=== PATIENT | female | born 1995 | race African-American/Black ===

== ENCOUNTER 2019-11-23 16:05 | Emergency (ER) | payer MEDICAID ==
[2019-11-23] MEDS ORDERED: Dexamethasone 4 mg/ml Vial ONE (16:23)
--- NOTE | 2019-11-23 16:32 | RAD ---
XR Chest Pa Lat STANDARD HISTORY: Cough, asthma COMPARISON: 08/07/2014 FINDINGS: The heart size is normal. The lungs are well expanded without focal areas of consolidation, pneumothorax or pleural effusions. IMPRESSION: No radiographic evidence of acute cardiopulmonary process.
== END 2019-11-23 17:53 | disposition home or self-care (01) ==
LOC: ERS 16:05
DX: J44.1 Chronic obstructive pulmonary disease with (acute) exacerbation (principal)
CPT/HCPCS: 71046; 87804; 94640; J1100; J7620

== ENCOUNTER 2021-07-23 14:59 | Emergency (ER) | payer MEDICAID | END 2021-07-23 16:05 | disposition home or self-care (01) | LOC: ERS 14:59 | DX: S09.21XA Traumatic rupture of right ear drum, initial encounter (principal); J45.909 Unspecified asthma, uncomplicated; W22.8XXA Striking against or struck by other objects, initial encounter | CPT/HCPCS: 99282 ==

== ENCOUNTER 2021-09-15 22:07 | Emergency (ER) | payer OTHER, MEDICAID | END 2021-09-15 22:48 | disposition home or self-care (01) | LOC: ERS 22:07 | DX: J06.9 Acute upper respiratory infection, unspecified (principal); J45.909 Unspecified asthma, uncomplicated | CPT/HCPCS: 99283 ==

== ENCOUNTER 2022-06-16 02:36 | Emergency (ER) | payer OTHER ==
[2022-06-16] MEDS ORDERED: Acetaminophen 500 MG TAB ONE (06:43)
== END 2022-06-16 06:00 | disposition home or self-care (01) ==
LOC: ERS 02:36
DX: S00.11XA Contusion of right eyelid and periocular area, initial encounter (principal); W50.0XXA Accidental hit or strike by another person, initial encounter
CPT/HCPCS: 70450; 70486; 72125

== ENCOUNTER 2022-11-27 19:25 | Emergency (ER) | payer OTHER | END 2022-11-27 19:39 | disposition left against medical advice (07) | LOC: ERS 19:25 | DX: Z53.21 Procedure and treatment not carried out due to patient leaving prior to being seen by health care provider (principal) ==

== ENCOUNTER 2023-10-21 20:12 | Emergency (ER) | payer OTHER, SELFPAY ==
[2023-10-21 21:38] LABS: Bacteria/HPF None Seen HPF (None Seen); Bilirubin Negative (Negative); Blood, Urine Negative (Negative); CAUTI Indications for Culture Pelvic or flank pain; Clarity Clear (Clear); Glucose, Urine (Dipstick) Normal (Negative); Ketone, Urine Negative (Negative); Leukocyte Negative Leu/uL (Negative); Nitrite Negative (Negative); Protein, Urine (Dipstick) 20 mg/dL (Neg-Trace); RBC/HPF 0-3 HPF (0-3); Squamous Epithelial 0-3 HPF (0-3); Urobilinogen Normal mg/dL (Less than 2); WBC/HPF 0-3 HPF (0-3); pH, Urine 6.5 (5.0-9.0)
[2023-10-21 21:50] LABS: Pregnancy Test - Urine (BHCG) Negative (Negative); Pregu Control Background? CLEAR/WHITE (CLR/WHITE); Pregu Control Bar Appear? YES (CONTROL BAR)
[2023-10-21 21:51] LABS: Urine Culture Reflex No No
[2023-10-21] MEDS ORDERED: Lidocaine 1% MPF 2 ML VIAL ONE (21:55)
[2023-10-21] MEDS ORDERED: cefTRIAXone (ROCEPHIN) 500 MG VIAL ONE (21:55)
[2023-10-22 00:32] LABS: Chlamydia by PCR, Vaginal Swab Not Detected (NotDetected); GC by PCR, Vaginal Swab Not Detected (NotDetected); Tric.vaginalis PCR,Vaginal Sw Not Detected (NotDetected)
== END 2023-10-21 22:37 | disposition home or self-care (01) ==
LOC: ERS 20:12
DX: Z20.2 Contact with and (suspected) exposure to infections with a predominantly sexual mode of transmission (principal)
CPT/HCPCS: 81001; 81025; 87480; 87491; 87510; 87591; 87660; 87661; 96372; 99283; J0696

== ENCOUNTER 2023-12-05 18:21 | Emergency (ER) | payer MEDICAID, OTHER ==
[2023-12-05 18:54] LABS: #Eosinphils 0.2 thou/uL (0.0-0.7); #Monocytes 0.5 thou/uL (0.11-0.59); #Neutrophils 3.7 thou/uL (1.40-6.50); %Basophils 0.4 % (0.0-1.0); %Eosinophils 2.4 % (0.0-10.0); %Lymphocytes 37.6 % (21.0-51.0); %Monocytes 6.6 % (0.0-10.0); %Neutrophils 52.9 % (42.0-75.0); Hematocrit 38.6 % (36.0-47.0); Hemoglobin 12.5 g/dL (12.0-16.0); Mean Corpuscular HGB CONC 32.4 g/dL (32.0-36.0); Mean Corpuscular Hemoglobin 24.9 pg (27.0-31.0); Mean Corpuscular Volume 76.9 fl (78.0-98.0); Mean Platelet Volume 9.5 fL (7.4-10.4); Platelet Count 334 10x3/uL (130-400); RBC Distribution Width 14.1 % (11.5-14.5); Red Blood Cell (RBC) Count 5.02 mill/uL (4.20-5.40); White Blood Cell (WBC) Count 7.1 10x3/uL (4.8-10.8)
[2023-12-05] MEDS ORDERED: Ondansetron PF 4 MG/2 ML Vial ONE (18:54)
[2023-12-05] MEDS ORDERED: Glucagon 1 MG/ML KIT ONE (18:54)
[2023-12-05 19:22] LABS: ALT (SGPT) 12 U/L (8-55); AST (SGOT) 53 U/L (5-34); Albumin 4.1 g/dL (3.5-5.0); Alkaline Phosphatase 60 U/L (40-110); Anion Gap 14 mmol/L (10-20); BUN (Urea Nitrogen) 6 mg/dL (7.0-18.7); Bilirubin, Total 0.2 mg/dL (0.2-1.2); Calc. Creatinine Clearance 0 mL/min (70-130); Carbon Dioxide 21 mmol/L (22-29); Chloride 103 mmol/L (98-107); Estimated GFR 120; Globulin 4.5 g/dL (2.4-3.5); Glucose 87 mg/dL (70-105); Lipase 23 U/L (8-78); Potassium 5.8 mmol/L (3.5-5.1); Protein, Total 8.6 g/dL (6.0-8.3); Sodium 132 mmol/L (136-145)
[2023-12-05 20:29] LABS: Bacteria/HPF None Seen HPF (None Seen); Bilirubin Negative (Negative); Blood, Urine Negative (Negative); CAUTI Indications for Culture Pelvic or flank pain; Calcium Oxalate Crystals 1+ HPF (None Seen); Clarity Clear (Clear); Glucose, Urine (Dipstick) Normal (Negative); Ketone, Urine 10 mg/dL (Negative); Leukocyte Negative Leu/uL (Negative); Nitrite Negative (Negative); Protein, Urine (Dipstick) 30 mg/dL (Neg-Trace); RBC/HPF 0-3 HPF (0-3); Specific Gravity, Urine 1.029 (1.002-1.036); Squamous Epithelial 0-3 HPF (0-3); Urobilinogen Normal mg/dL (Less than 2); WBC/HPF 0-3 HPF (0-3)
[2023-12-05 20:30] LABS: Urine Culture Reflex No No
== END 2023-12-05 20:35 | disposition home or self-care (01) ==
LOC: ERS 18:21
DX: O21.0 Mild hyperemesis gravidarum (principal); Z3A.08 8 weeks gestation of pregnancy
CPT/HCPCS: 80053; 81001; 83690; 85025; 96361; 96374; 96375; J1611; J2405

== ENCOUNTER 2023-12-27 15:10 | Emergency (ER) | payer OTHER | END 2023-12-27 18:40 | disposition home or self-care (01) | LOC: ERS 15:10 | DX: O9A.211 Injury, poisoning and certain other consequences of external causes complicating pregnancy, first trimester (principal); S30.1XXA Contusion of abdominal wall, initial encounter; Y04.8XXA Assault by other bodily force, initial encounter; Z3A.13 13 weeks gestation of pregnancy | CPT/HCPCS: 99283 ==

== ENCOUNTER 2024-04-11 18:50 | Emergency (ER) | payer OTHER | END 2024-04-11 20:22 | disposition home or self-care (01) | LOC: ERS 18:50 | DX: O9A.213 Injury, poisoning and certain other consequences of external causes complicating pregnancy, third trimester (principal); S33.5XXA Sprain of ligaments of lumbar spine, initial encounter; S30.0XXA Contusion of lower back and pelvis, initial encounter; W01.0XXA Fall on same level from slipping, tripping and stumbling without subsequent striking against object, initial encounter; Z3A.28 28 weeks gestation of pregnancy | CPT/HCPCS: 99283 ==